=== PATIENT | male | born 1970 | race Caucasian/White ===

== ENCOUNTER 2019-07-13 12:06 | Observation (INO) | payer OTHER ==
[~2019-07-13] VITALS: Ht 180.3 cm; Wt 132.5 kg
[2019-07-13] MEDS ORDERED: LOSARTAN (12:30)
[2019-07-13] MEDS ORDERED: HYDROCHLOROTHIAZIDE (12:30)
--- NOTE | 2019-07-13 12:33 | NUR ---
PT TO ED FOR LEFT CP RAD TO RIGHT CHEST AND DOWN LEFT ARM SINCE 0600 THIS AM. PT STATES WORSE WITH ACTIVITY/EXERTION, BETTER WITH REST AND DEEP BREATHING. PT CONNECTED TO ALL MONTIORS. CLARISSE FRIAS TO BS FOR ASSESSMENT. PT DECLINING PIV AT THIS TIME. AWAITING LAB DRAW AND CXR.
--- NOTE | 2019-07-13 12:49 | NUR ---
XR TO BS. LABS DRAWN.
[2019-07-13 12:54] LABS: BASOPHILS # (AUTO) 0.02 x10^3/uL (0-0.1); BASOPHILS % (AUTO) 0 % (0-1); EOSINOPHILS % (AUTO) 2 % (1-7); LYMPHOCYTES % (AUTO) 31 % (22-44); MD NO; MEAN CORPUSCULAR HEMOGLOBIN 31.9 pg (27.5-34.5); MEAN CORPUSCULAR HGB CONC 33.6 g/dL (33.2-36.2); MEAN CORPUSCULAR VOLUME 94.8 fL (81-97); MEAN PLATELET VOLUME 8.7 fL (7.4-10.4); MONOCYTES # (AUTO) 0.79 x10^3/uL (0.2-0.8); MONOCYTES % (AUTO) 12 % (2-9); NEUTROPHILS # (AUTO) 3.66 x10^3/uL (1.8-6.8); NEUTROPHILS % (AUTO) 56 % (42-75); PLATELET COUNT 263 x10^3/uL (130-400); RED BLOOD COUNT 4.66 x10^6/uL (4.38-5.82); RED CELL DISTRIBUTION WIDTH 14.6 % (9.4-14.8)
[2019-07-13 13:04] LABS: ALANINE AMINOTRANSFERASE 39 U/L (12-78); ALBUMIN 3.7 g/dL (3.4-5.0); ANION GAP 6 mmol/L (5-15); CALCIUM 8.7 mg/dL (8.5-10.1); CHLORIDE 105 mmol/L (98-107); CREATININE 0.98 mg/dL (0.7-1.3)
[2019-07-13 13:08] LABS: ALKALINE PHOSPHATASE 92 U/L (45-117); BILIRUBIN,TOTAL 0.4 mg/dL (0.2-1.0); TOTAL PROTEIN 8.3 g/dL (6.4-8.2); TROPONIN I < 0.015 ng/mL (0.000-0.045)
--- NOTE | 2019-07-13 13:12 | NUR ---
PT RESTING IN ROOM WITH FAMILY AT BS. VSS. NO NEEDS EXPRESSED. AWAITING RESUTLS.
--- NOTE | 2019-07-13 14:31 | NUR ---
PT RESTING IN ROOM WITH FAMILY AT BS. VSS. NO NEEDS EXPRESSED. PIV BEING ESTABLISHED AT THIS TIME. ADMIT ORDERS RECEVIED. DR. SHEN TO BS FOR ASSESSMENT. AWAITING ROOM ASSIGNMENT.
[2019-07-13] MEDS ORDERED: NITROGLYCERIN 0.4 MG BOTTLE (25 TABS) SL PRN (15:00)
[2019-07-13] MEDS ORDERED: NITROGLYCERIN 0.4 MG/SPRAY SL PRN (15:00)
[2019-07-13] MEDS ORDERED: ACETAMINOPHEN 325 MG TABLET PO PRN (15:00)
[2019-07-13] MEDS ORDERED: morphine SULFATE 10 MG/ML, 1ML IVPush PRN (15:00)
[2019-07-13] MEDS ORDERED: OXYcodone IR 5MG TABLET PO PRN (15:00)
[2019-07-13] MEDS ORDERED: morphine SULFATE 10 MG/ML, 1ML IV PRN (15:00)
[2019-07-13 15:34] LABS: CHOL/HDL RATIO 4.8; LDL/HDL RATIO 2.8 (0.5-3.0)
--- NOTE | 2019-07-13 15:39 | NUR ---
PT RESTING IN ROOM WITH FAMILY AT BS. VSS. NO NEEDS EXPRESSED. PIV BEING ESTABLISHED AT THIS TIME. ADMIT ORDERS RECEVIED. AWAITING ROOM ASSIGNMENT.
--- NOTE | 2019-07-13 16:20 | NUR ---
report to NAUN Escobedo. pt ready for transport.
[2019-07-13 16:53] VITALS: BP 127/78
[2019-07-13 19:02] LABS: TROPONIN I < 0.015 ng/mL (0.000-0.045)
[2019-07-13 20:33] VITALS: BP 133/86
[2019-07-13] MEDS: SODIUM CHLORIDE FLUSH 10ML SYR IVF SCH (21:20)
[2019-07-14 00:47] LABS: TROPONIN I < 0.015 ng/mL (0.000-0.045)
[2019-07-14 01:44] VITALS: BP 133/83
[2019-07-14] MEDS ORDERED: ASPIRIN 325 MG TABLET EC PO SCH (06:00)
[2019-07-14 06:40] VITALS: BP 132/81
[2019-07-14] MEDS: SODIUM CHLORIDE FLUSH 10ML SYR IVF SCH (09:00)
[2019-07-14] MEDS ORDERED: LOSARTAN 25MG TABLET PO SCH (09:00)
[2019-07-14] MEDS ORDERED: HYDROCHLOROTHIAZIDE 12.5 MG CAPSULE PO SCH (09:00)
== END 2019-07-14 13:00 | disposition home or self-care (01) ==
LOC: ED 14:29 → INTOOBSV 14:30 → EDIP 14:30 → SUATTDRO 14:30 → ED 14:40 → 4EST 16:52 → DCLOUNGE 07-14 12:52
PROVIDERS: ADMIT Internal Medicine; ATTEND Internal Medicine
DX: R07.9 Chest pain, unspecified (principal); I10 Essential (primary) hypertension; R55 Syncope and collapse; G47.30 Sleep apnea, unspecified; E66.01 Morbid (severe) obesity due to excess calories
CPT/HCPCS: 36415; 71045; 80053; 80061; 83880; 84484; 85025; 93005; 93017; 99284; G0378

== ENCOUNTER → 2019-08-24 | Outpatient (CLI) | payer OTHER ==
[~2019-08-24] MED LIST: HYDROCHLOROTHIAZIDE; LOSARTAN
== END | disposition home or self-care (01) ==
LOC: CFH 08:49
PROVIDERS: ATTEND Internal Medicine Cardiovascular Disease
DX: J92.9 Pleural plaque without asbestos (principal); E78.1 Pure hyperglyceridemia; Z82.49 Family history of ischemic heart disease and other diseases of the circulatory system
CPT/HCPCS: 75571

== ENCOUNTER 2019-09-15 15:01 | Outpatient (CLI) | payer OTHER | END 2019-09-15 23:59 | disposition home or self-care (01) | LOC: CVU 15:01 | PROVIDERS: ATTEND Internal Medicine Cardiovascular Disease | DX: R07.89 Other chest pain (principal); E78.1 Pure hyperglyceridemia; I10 Essential (primary) hypertension | CPT/HCPCS: 93306; 93356 ==